=== PATIENT | female | born 1980 | race Caucasian/White ===

== ENCOUNTER → 2016-11-15 | Outpatient (CLI) | payer OTHER ==
[~2016-11-15] MED LIST: ACET-1256 PO; HYDR-5688 PO; IBUP-103 PO; PRENTAB26 PO
[2016-11-15 14:54] LABS: MEAN CELL VOLUME 87.4 fL (80-100); MEAN CORPUSCULAR HGB CONC 33.2 g/dl (32-36); MEAN PLATELET VOLUME 11.2 fL (7.4-10.4); PLATELET COUNT 169 K/uL (130-400); RED BLOOD COUNT 4.35 M/uL (4.2-5.4); WHITE BLOOD COUNT 2.75 K/uL (4.8-10.8)
[2016-11-15 15:21] LABS: ALT/SGPT 18 U/L (12-78); AST/SGOT 12 U/L (15-37); BLOOD UREA NITROGEN 12 mg/dl (7-18); BUN/CREATININE RATIO 13.8 (10-20); CARBON DIOXIDE 29 mmol/L (21-32); CHLORIDE 107 mmol/L (98-107); CREATININE 0.84 mg/dl (0.60-1.20); GLUCOSE 84 mg/dl (70-99); POTASSIUM 3.8 mmol/L (3.5-5.1); SODIUM 141 mmol/L (136-145)
[2016-11-15 15:24] LABS: ALB/GLOB RATIO 1.1 (0.9-2); ALKALINE PHOSPHATASE 45 U/L (45-117); CHOLESTEROL 145 mg/dl (0-200); CHOLESTEROL/HDL RATIO 2.2; HDL CHOLESTEROL 65 mg/dl; LDL CHOLESTEROL CALCULATED 74 mg/dl; TRIGLYCERIDES 32 mg/dl (0-150); VERY LOW DENSITY LIPOPROT CALC 6 mg/dl
== END | disposition home or self-care (01) ==
LOC: C.LABBC 10:18
PROVIDERS: ATTEND Internal Medicine
DX: Z00.00 Encounter for general adult medical examination without abnormal findings (principal)

== ENCOUNTER → 2016-12-06 | Outpatient (CLI) | payer OTHER | END | disposition home or self-care (01) | LOC: C.PAPS 13:54 | PROVIDERS: ATTEND Obstetrics & Gynecology | DX: Z01.419 Encounter for gynecological examination (general) (routine) without abnormal findings (principal) ==

== ENCOUNTER → 2016-12-25 | Outpatient (CLI) | payer OTHER | END | disposition home or self-care (01) | LOC: C.PATHSPEC 17:09 | PROVIDERS: ATTEND Obstetrics & Gynecology | DX: R87.610 Atypical squamous cells of undetermined significance on cytologic smear of cervix (ASC-US) (principal); R87.810 Cervical high risk human papillomavirus (HPV) DNA test positive; N87.9 Dysplasia of cervix uteri, unspecified; R87.612 Low grade squamous intraepithelial lesion on cytologic smear of cervix (LGSIL) ==

== ENCOUNTER → 2017-03-04 | Outpatient (CLI) | payer OTHER ==
[~2017-03-04] MED LIST changes: -IBUP-103 PO
--- NOTE | 2017-03-04 10:35 | DIAGNOSTIC IMAGING REPORT ---
ABDOMEN FOR HERNIA CLINICAL HISTORY: 36 years-old Female presenting with right lower quadrant abdominal tenderness. TECHNIQUE: Real-time grayscale and limited color Doppler ultrasound imaging of the right lower quadrant was performed. COMPARISON: None. FINDINGS: At the palpable right lower quadrant region of interest, a fat and bowel-containing hernia noted. The neck of the hernia at the peritoneal defect measures 1.5 cm in width. With compression, the hernia appears reducible. No hyperemia of the contents. No associated fluid to suggest secondary inflammatory change. IMPRESSION: Reducible right lower quadrant hernia containing fat and bowel. No secondary signs of inflammation. Electronically signed by: Jamie Song M.D. 03/04/2017 10:34 AM Dictated Date/Time: 03/04/2017 10:32 AM
== END | disposition home or self-care (01) ==
LOC: C.ULTRBC 10:00
PROVIDERS: ATTEND Nurse Practitioner Family
DX: R10.813 Right lower quadrant abdominal tenderness (principal)

== ENCOUNTER → 2017-03-28 | Day surgery (SDC) | payer OTHER ==
[2017-03-27 09:03] VITALS: Ht 172.7 cm; Wt 66.4 kg
[~2017-03-28] VITALS: Ht 172.7 cm; Wt 66.4 kg
[~2017-03-28] MED LIST changes: -ACET-1256 PO; +ATROPINE SULFATE 0.1 MG/ML 5ML SYR IV PRN; +BUPIVACAINE/EPINEPHRINE 0.5% MPF 1:200,000 10 ML VIAL ONE; +CLINDAMYCIN PHOS 150 MG/ML 2 ML VIAL IV SCH; +DEXAMETHASONE SOD INJ 4 MG/ML VIAL ONE; +EpHEDrine SULFATE INJ 50 MG/ML AMP IV PRN; +FENTANYL CITRATE INJ 50 MCG/1 ML 2 ML VIAL IV PRN; +FENTANYL CITRATE INJ 50 MCG/1 ML 2 ML VIAL ONE; +HYDROCODONE/ACETAMOPHEN 5/325MG TAB PO PRN; +KETOROLAC TROMETHAMINE 30 MG/ML VIAL ONE; +LACTATED RINGER'S 1000ML 1,000 ML IV SCH; +LIDOCAINE HCL 2% 2 ML VIAL (20MG/ML) ONE; +MIDAZOLAM HCL 1 MG/ML 2ML VIAL ONE; +ONDANSETRON INJ 2 MG/ML 2 ML VIAL IV PRN; +ONDANSETRON INJ 2 MG/ML 2 ML VIAL ONE; -PRENTAB26 PO; +PROPOFOL IV EMULSION 10 MG/ML 20 ML VIAL IV ONE; +SODIUM CHLORIDE 0.9% 1000ML 1,000 ML IV SCH
--- NOTE | 2017-03-28 06:56 | History & Physical Bridge Note ---
H&P Re-Evaluation Bridge Note: I have examined the patient, reviewed the History & Physical and in the interval since the performance of the History & Physical I have noted the following changes of clinical significance: No changes noted
--- NOTE | 2017-03-28 08:02 | [facility] Operative Report ---
Operative Report Operative Date Mar 28, 2017. Pre-Operative Diagnosis Right Inguinal Hernia Post-Operative Diagnosis Same Procedure(s) Performed Open Right Inguinal Hernia Repair With Mesh;ilioinguinal neurolysis Surgeon Dr. Leonardo Pond Worker Surgeon(s) Nicki Ozuna PA-C Estimated Blood Loss 5 ML Findings moderate sized indirect hernia Specimens None Anesthesia LMA Complication(s) None Disposition Recovery Room / PACU I attest to the content of the Intraoperative Record and any orders documented therein. Any exceptions are noted below.
--- NOTE | 2017-03-28 08:09 | Discharge Instructions-SurgCtr ---
Discharge Instructions Date of Service Mar 28, 2017. Visit Reason for Visit: Right Inguinal Hernia Discharge Discharge Diagnosis / Problem: Right Inguinal Hernia Discharge Goals Goal(s): Decrease discomfort, Improve function Activity Recommendations Activity Limitations: as noted below Lifting Limitations: no more than 10 pounds Exercise/Sports Limitations: until after follow-up appointment May Resume Sexual Activity: after follow-up appointment Shower/Bathe: tomorrow Anesthesia . Post Anesthesia Instructions: If you have had General Anesthesia or IV Sedation: * Do not drive today. * Resume driving when surgeon permits. * Do not make important decisions or sign legal documents today. * Call surgeon for: 1. Temperature elevations greater than 101 degrees F. 2. Uncontrollable pain. 3. Excessive bleeding. 4. Persistent nausea and vomiting. 5. Medication intolerance (nausea, vomiting or rash). * For nausea and vomiting use only clear liquids such as: tea, soda, bouillon until nausea subsides, then gradually increase diet as tolerated. * If you have any concerns or questions, call your surgeon's office. If physician is unavailable and it is an emergency, call 911 or go to the nearest emergency room. . Instructions / Follow-Up Instructions / Follow-Up Please follow-up with Dr. Leonadro in the office in 1-2 weeks. Please call the office at [phone] to make an appointment if you do not have one already. Please call the office with any questions or concerns. Diet Recommendations Home Diet: no limitations, resume previous diet Procedures Procedures Performed: Open Right Inguinal Hernia Repair With Mesh;ilioinguinal neurolysis Pending Studies Studies pending at discharge: no Medical Emergencies . Who to Call and When: Medical Emergencies: If at any time you feel your situation is an emergency, please call 911 immediately. . Non-Emergent Contact Non-Emergency issues call your: Primary Care Provider, Surgeon Call Non-Emergent contact if: temperature is above 101.5, your pain is not controlled, wound has increased drainage, wound has increased redness . . "Provider Documentation" section prepared by Licha Ozuna. . [place] Drug Monitoring Program Search Results: patient reviewed within database, no issues identified
[2017-03-28 09:15] VITALS: BP 119/75; PULSE 66; O2SAT 100
--- NOTE | 2017-03-28 09:21 | OPERATIVE REPORT ---
DATE OF OPERATION: 03/28/2017 PREOPERATIVE DIAGNOSIS: Right inguinal hernia. POSTOPERATIVE DIAGNOSIS: Same. PROCEDURE: Open right inguinal hernia repair with mesh and ilioinguinal neurolysis. SURGEON: Dr. Leonardo. VESSEL BUILDER: Licha Ozuna PA-C. ESTIMATED BLOOD LOSS: 5 mL. COMPLICATIONS: No immediate. ANESTHESIA: General with laryngeal mask airway. OPERATIVE NOTE: After informed consent was obtained, the patient was taken to the operating suite, placed in supine position. After successful placement of laryngeal mask airway the right lower quadrant was shaved and sterilely prepped and draped in usual fashion. An inguinal incision was made with 15 blade scalpel and carried down through the soft tissue using electrocautery. The external oblique aponeurosis was skeletonized. I then used a fresh blade to make a small incision in it and used Metzenbaum scissors to extend this distally down to the pubic bone as well as for several centimeters proximally. Once in the inguinal canal, we were able to readily see a bulge near the base of the round ligament. I was able to grasp the remnants of the round ligament and elevate them and put a [place] around them. The hernia sac was readily identifiable. We used traction, counter traction small amounts of electrocautery to dissect this back to its base. Once we had it completely freed up, we were able to easily dunk it back down into the abdominal cavity. I then closed the muscle using 0 Nurolon to keep the hernia sac in the abdomen while we placed the mesh. We then used a piece of polypropylene mesh. We secured it with 0 Ethibond to Den's ligament distally, laterally along the shelving portion of Poupart's ligament and medially along the midline musculature. The "arms" were wrapped around behind the round ligament remnants and secured to underlying muscle. The mesh laid nice and tension free. There was adequate hemostasis at the end of the procedure. We thoroughly irrigated the wound and placed Marcaine around the edges of the mesh for postoperative analgesia. We then closed the external oblique aponeurosis with 2-0 Vicryl in a running fashion. Soft tissue was irrigated and closed with 3-0 Vicryl and skin was closed with 4-0 Monocryl. Some additional Marcaine was injected around the incision for postoperative analgesia and skin glue used as a dressing. The patient was awakened, extubated, and transferred to recovery in stable condition. I attest to the content of the Intraoperative Record and any orders documented therein. Any exception s are noted below.
--- NOTE | 2017-03-28 09:37 | Anesthesiology Progress Note ---
Anesthesia Post Op Note Date & Time Mar 28, 2017 at 09:35 Vital Signs Pain Intensity: 0 Vital Signs Past 12 Hours Date Time Temp Pulse Resp B/P (MAP) Pulse Ox O2 Delivery O2 Flow Rate FiO2 03/28/17 09:15 66 16 119/75 (90) 100 Room Air 03/28/17 08:53 36.6 58 16 114/65 (81) 100 Room Air 03/28/17 08:42 36.4 56 18 118/78 100 Room Air 03/28/17 08:41 118/78 03/28/17 08:40 63 24 99 03/28/17 08:40 60 24 03/28/17 08:36 128/78 03/28/17 08:35 59 14 98 03/28/17 08:35 56 14 03/28/17 08:31 131/79 03/28/17 08:30 58 21 100 03/28/17 08:30 57 21 03/28/17 08:26 131/78 03/28/17 08:25 58 18 03/28/17 08:25 58 18 100 03/28/17 08:21 132/51 03/28/17 08:20 72 23 03/28/17 08:20 70 23 98 03/28/17 08:16 120/85 03/28/17 08:15 65 23 100 03/28/17 08:15 63 23 03/28/17 08:11 128/107 03/28/17 08:10 77 100 03/28/17 08:10 77 03/28/17 08:05 36.6 85 16 134/71 99 Mask 5 03/28/17 08:05 91 134/71 99 03/28/17 08:05 91 03/28/17 06:26 36.6 63 16 119/75 (90) 100 Room Air Notes Mental Status: alert / awake / arousable, participated in evaluation Pt Amnestic to Procedure: Yes Nausea / Vomiting: adequately controlled Pain: adequately controlled Airway Patency, RR, SpO2: stable & adequate BP & HR: stable & adequate Hydration State: stable & adequate Anesthetic Complications: no major complications apparent Significant weakness remains in the L quad muscle and sensory deficit in distribution of the Femoral N. The patient has no pain. Dr Leonardo used 0.5% marcane with epinephrine. I told the patient to expect ~12-16 hours of weakness. I would suspect that she will be ambulatory by tomorrow morning and fully recovered by 48 hours. I did notify Dr Leonardo of the femoral spread of his local anesthetic infiltration and he is comfortable with the patient being discharged to home.
== END | disposition home or self-care (01) ==
LOC: X.SURG 06:20
PROVIDERS: ATTEND Surgery
DX: K40.90 Unilateral inguinal hernia, without obstruction or gangrene, not specified as recurrent (principal)

== ENCOUNTER → 2017-08-14 | Outpatient (CLI) | payer OTHER ==
[~2017-08-14] MED LIST changes: -ATROPINE SULFATE 0.1 MG/ML 5ML SYR IV PRN; -BUPIVACAINE/EPINEPHRINE 0.5% MPF 1:200,000 10 ML VIAL ONE; -CLINDAMYCIN PHOS 150 MG/ML 2 ML VIAL IV SCH; -DEXAMETHASONE SOD INJ 4 MG/ML VIAL ONE; -EpHEDrine SULFATE INJ 50 MG/ML AMP IV PRN; -FENTANYL CITRATE INJ 50 MCG/1 ML 2 ML VIAL IV PRN; -FENTANYL CITRATE INJ 50 MCG/1 ML 2 ML VIAL ONE; -HYDR-5688 PO; -HYDROCODONE/ACETAMOPHEN 5/325MG TAB PO PRN; +IBUP-103 PO; -KETOROLAC TROMETHAMINE 30 MG/ML VIAL ONE; -LACTATED RINGER'S 1000ML 1,000 ML IV SCH; -LIDOCAINE HCL 2% 2 ML VIAL (20MG/ML) ONE; -MIDAZOLAM HCL 1 MG/ML 2ML VIAL ONE; -ONDANSETRON INJ 2 MG/ML 2 ML VIAL IV PRN; -ONDANSETRON INJ 2 MG/ML 2 ML VIAL ONE; -PROPOFOL IV EMULSION 10 MG/ML 20 ML VIAL IV ONE; -SODIUM CHLORIDE 0.9% 1000ML 1,000 ML IV SCH
[2017-08-14 16:38] LABS: BASO % 0.4 %; BASO ABS # 0.02 K/uL (0-0.2); COMPLETE YES; EOS % 4.7 %; HEMATOCRIT 37.7 % (37-47); IG% 0.2 %; LYMPH % 30.1 %; LYMPH ABS # 1.55 K/uL (1.2-3.4); MEAN CELL VOLUME 87.5 fL (80-100); MEAN CORPUSCULAR HGB CONC 33.2 g/dl (32-36); MEAN PLATELET VOLUME 11.2 fL (7.4-10.4); MONO % 7.4 %; NEUT % 57.2 %; PLATELET COUNT 157 K/uL (130-400); RED BLOOD COUNT 4.31 M/uL (4.2-5.4); WHITE BLOOD COUNT 5.15 K/uL (4.8-10.8)
== END | disposition home or self-care (01) ==
LOC: C.LAB1850 15:25
PROVIDERS: ATTEND Obstetrics & Gynecology
DX: Z01.812 Encounter for preprocedural laboratory examination (principal)

== ENCOUNTER → 2017-08-27 | Day surgery (SDC) | payer OTHER ==
[2017-07-21 14:58] VITALS: Ht 172.7 cm; Wt 67.3 kg
--- NOTE | 2017-08-14 18:24 | HISTORY & PHYSICAL EXAMINATION ---
DATE OF ADMISSION: 08/27/2017 PREOPERATIVE HISTORY AND PHYSICAL ADMITTING DIAGNOSES: Desired permanent surgical sterilization. ADMISSION HISTORY: The patient is a 37-year-old 3, para 2, AB 1, last menstrual period of 27 July who is admitted for laparoscopic tubal ligation. The patient adamantly desires no further childbearing capacity. The patient understands reversible forms of contraception available and wishes to proceed. PAST MEDICAL HISTORY: OBSTETRICAL: x2. GYNECOLOGICAL: Mild cervical dysplasia. MEDICAL: None. SURGICAL: Corneal surgery, inguinal hernia surgery, sinus surgery. ALLERGIES: AMOXICILLIN. SOCIAL HISTORY: No smoking. FAMILY HISTORY: Noncontributory. REVIEW OF SYSTEMS: As per HPI. ADMISSION PHYSICAL EXAMINATION: GENERAL: Shows a pleasant female in no acute distress. VITAL SIGNS: Blood pressure 122/80, height of 5 feet 7 inches, weight 152 pounds. HEENT EXAMINATION: Unremarkable. NECK: Supple. LUNGS: Clear. HEART: With a regular rhythm and rate. ABDOMEN: Soft, nontender. PELVIC: Shows normal external genitalia, vaginal wall pink and rugated. Cervical os multiparous and closed. Bimanual examination shows an anterior mobile uterus. Adnexa show no palpable masses. RECTAL: Confirmatory. EXTREMITIES: Shows no deep calf tenderness. NEUROLOGIC: Grossly intact. IMPRESSION: A 37-year-old 3, para 2, 1, requesting permanent surgical sterilization. PLAN: Risks, benefits and alternatives to the surgery have been discussed. While the benefits will be permanent surgical sterilization, the risks are bleeding, infection, inadvertent injury to bowel or bladder or failure of the procedure itself, failure rate quoted at 1-3%. The patient understands this. Permit has been signed and she wishes to proceed. OBED
[~2017-08-27] VITALS: Ht 172.7 cm; Wt 67.3 kg
[~2017-08-27] MED LIST changes: +ATROPINE SULFATE 0.1 MG/ML 5ML SYR IV PRN; +CHECK SCOPOLAMINE PATCH PLACEMENT SCH; +DEXAMETHASONE SOD INJ 4 MG/ML VIAL ONE; +EpHEDrine SULFATE INJ 50 MG/ML AMP IV PRN; +FENTANYL CITRATE INJ 50 MCG/1 ML 2 ML VIAL IV PRN; +FENTANYL CITRATE INJ 50 MCG/1 ML 2 ML VIAL ONE; +GLYCOPYRROLATE INJ 0.2 MG/ML VIAL ONE; +HYDR-5688 PO; +HYDROCODONE/ACETAMOPHEN 5/325MG TAB PO PRN; +IBUPROFEN 200 MG TAB ONE; +IBUPROFEN 600 MG TAB PO PRN; +KETOROLAC TROMETHAMINE 30 MG/ML VIAL IV. PRN; +KETOROLAC TROMETHAMINE 30 MG/ML VIAL ONE; +LACTATED RINGER'S 1000ML 1,000 ML IV SCH; +LIDOCAINE HCL 2% 2 ML VIAL (20MG/ML) ONE; +MIDAZOLAM HCL 1 MG/ML 2ML VIAL ONE; +NEOSTIGMINE METHYLSULFATE 5 MG/5 ML SYR ONE; +ONDANSETRON INJ 2 MG/ML 2 ML VIAL IV PRN; +ONDANSETRON INJ 2 MG/ML 2 ML VIAL ONE; +PROMETHAZINE HCL INJ 12.5 MG in SODIUM CHLORIDE 0.9% 50ML 50 ML IV PRN; +PROPOFOL IV EMULSION 10 MG/ML 20 ML VIAL IV ONE; +ROCURONIUM BROMIDE 10 MG/ML 5 ML VIAL IV ONE; +SCOPOLAMINE 1.5 MG TDSY TD SCH; +SODIUM CHLORIDE 0.9% 1000ML 1,000 ML IV SCH
--- NOTE | 2017-08-27 12:38 | [facility] Post Operative Brief Note ---
Immediate Operative Summary Operative Date Aug 27, 2017. Pre-Operative Diagnosis Encounter for Sterilization Post-Operative Diagnosis same Procedure(s) Performed Laparoscopic Tubal Sterilization Surgeon Dr De La Garza Lehr Tender Surgeon(s) none Estimated Blood Loss minimal Findings Normal appearing uterus, tubes and ovaries bilaterally. Bilateral fulguration of fallopian tubes Fluids (cc crystalloids) 800 Specimens none Drains None Anesthesia General Complication(s) None Disposition Recovery Room / PACU
--- NOTE | 2017-08-27 12:40 | Discharge Instructions-SurgCtr ---
Discharge Instructions Date of Service Aug 27, 2017. Visit Reason for Visit: Encounter For Sterilization Discharge Discharge Diagnosis / Problem: same Discharge Goals Goal(s): Therapeutic intervention Activity Recommendations Activity Limitations: as noted below Anesthesia . Post Anesthesia Instructions: If you have had General Anesthesia or IV Sedation: * Do not drive today. * Resume driving when surgeon permits. * Do not make important decisions or sign legal documents today. * Call surgeon for: 1. Temperature elevations greater than 101 degrees F. 2. Uncontrollable pain. 3. Excessive bleeding. 4. Persistent nausea and vomiting. 5. Medication intolerance (nausea, vomiting or rash). * For nausea and vomiting use only clear liquids such as: tea, soda, bouillon until nausea subsides, then gradually increase diet as tolerated. * If you have any concerns or questions, call your surgeon's office. If physician is unavailable and it is an emergency, call 911 or go to the nearest emergency room. . Instructions / Follow-Up Instructions / Follow-Up ACTIVITY RECOMMENDATIONS: * Rest the first 2-3 days. You should be back to your normal activity levels by day 3. * No heavy lifting for 2 weeks. * No intercourse, tampons or douching for 1-2 weeks. * You may shower the next day. * Do not drive anytime that you are taking narcotic pain medicines. RETURN TO SCHOOL/WORK: * May return to school or work after 2-3 days. DIET: Nausea may occur in the immediate post-operative period. If so, take clear liquids such as tea, bouillon, apple juice until all nausea has subsided, then resume usual diet. MEDICATIONS: Resume previous medications unless instructed otherwise by your surgeon. Ibuprofen 200mg 2-3 tablets every 4-6 hours as needed -- OR -- Aleve 2 tablets every 8-12 hours as needed for post-operative discomfort Medications are over the counter. Tylenol may be used if above medications are contraindicated or not preferred. Medication should be taken with food or milk. Do not take on an empty stomach. SPECIAL CARE INSTRUCTIONS: * Check temperature twice daily for one week. report any elevation over 101 degrees. * You may experience some vagina spotting and/or bleeding. This is normal for 1 -2 weeks and should not be heavier than a normal period. If it is unusual in amount, call your physician. * Post-operative discomfort may consist of a sore throat, a "bloated" feeling and pain in the shoulders. these are normal symptoms, which usually only last for 2-3 days. * Remove band-aids tomorrow and shower. There is no need to replace band-aids unless there is drainage or discomfort. FOLLOW UP VISIT: Call your doctor's office for a post-operative 2 week visit if not already scheduled. Diet Recommendations Home Diet: resume previous diet Procedures Procedures Performed: Laparoscopic Tubal Sterilization Pending Studies Studies pending at discharge: no Medical Emergencies . Who to Call and When: Medical Emergencies: If at any time you feel your situation is an emergency, please call 911 immediately. . Non-Emergent Contact Non-Emergency issues call your: [employer] Call Non-Emergent contact if: you have a fever, temperature is above 100.5, your pain is not controlled, your pain is worsening, wound has increased drainage, wound has increased redness . . "Provider Documentation" section prepared by Zuhair De La Garza. . [place] Drug Monitoring Program Search Results: patient reviewed within database, no issues identified
--- NOTE | 2017-08-27 12:49 | OPERATIVE REPORT ---
DATE OF OPERATION: 08/27/2017 PREOPERATIVE DIAGNOSIS: Desired permanent surgical sterilization. POSTOPERATIVE DIAGNOSIS: Same. PROCEDURE PERFORMED: Laparoscopic tubal ligation. SURGEON: Dr. De La Garza. ANESTHESIA: General. FINDINGS: Laparoscopic examination of the pelvis showed normal appearing uterus, tubes, and ovaries bilaterally. Bilateral fulguration of the fallopian tube in the proximal third in 3 contiguous lomeli until resistance met 0. PROCEDURE IN DETAIL: The patient was taken to the operating room and after general anesthesia, she was placed in dorsal lithotomy position and draped in the usual fashion. Bladder was drained of any residual urine. Single tooth tenaculum was used to grasp the anterior lip of the cervix. Register cannula was inserted into the cervical os and fastened to the tenaculum. Small subumbilical incision was made and the Veress needle was introduced into the pelvic cavity, which was then insufflated with 3 liters of CO2. Veress needle was removed and the sharp trocar was used to introduce the laparoscope. Pelvic organs were visualized and then under direct laparoscopic guidance, a 5-mm suprapubic trocar was placed. Through the suprapubic trocar, a stirring probe was inserted and pelvic organs were visualized with description as above. Stirring probe was removed and the bipolar cautery instrument was inserted through the suprapubic trocar. The fallopian tubes were then cauterized bilaterally in 3 contiguous lomeli until resistance met 0. Hemostasis was present. The CO2 was allowed to escape from the pelvic cavity. The trocars were removed under direct laparoscopic guidance. The skin incisions were closed with 4-0 Vicryl subcuticular sutures. Sterile dressings applied. Register cannula and tenaculum removed from the cervix. The patient taken out of dorsal lithotomy to the recovery room in satisfactory condition. I attest to the content of the Intraoperative Record and any orders documented therein. Any exception s are noted below.
[2017-08-27 13:37] VITALS: TEMP 37.2
[2017-08-27 14:01] VITALS: BP 117/63; PULSE 60; O2SAT 100
--- NOTE | 2017-08-27 14:25 | Anesthesiology Progress Note ---
Anesthesia Post Op Note Date & Time Aug 27, 2017 at 14:24 Vital Signs Pain Intensity: 2.0 Vital Signs Past 12 Hours Date Time Temp Pulse Resp B/P (MAP) Pulse Ox O2 Delivery O2 Flow Rate FiO2 08/27/17 14:01 60 16 117/63 (81) 100 Room Air 08/27/17 13:37 37.2 69 16 128/63 (84) 100 Room Air 08/27/17 13:30 118/72 08/27/17 13:26 52 24 08/27/17 13:26 56 24 99 08/27/17 13:25 65 17 08/27/17 13:25 61 17 117/77 99 08/27/17 13:20 55 16 08/27/17 13:20 55 16 119/72 98 08/27/17 13:18 37.0 99 Room Air 08/27/17 13:15 54 17 123/72 99 08/27/17 13:15 55 17 08/27/17 13:14 53 22 100 08/27/17 13:14 54 22 08/27/17 13:10 115/74 08/27/17 13:09 51 17 08/27/17 13:09 52 17 100 08/27/17 13:08 54 17 08/27/17 13:08 54 17 100 08/27/17 13:05 125/76 08/27/17 13:03 59 15 100 08/27/17 13:03 57 15 08/27/17 13:00 118/76 08/27/17 12:58 64 17 08/27/17 12:58 62 17 100 08/27/17 12:55 119/69 08/27/17 12:53 60 21 100 08/27/17 12:53 61 21 08/27/17 12:50 126/78 08/27/17 12:48 37.1 82 18 122/78 100 Mask 9 08/27/17 12:48 75 17 122/78 100 08/27/17 12:48 75 17 08/27/17 11:28 36.7 75 16 118/85 (96) 99 Room Air Notes Mental Status: alert / awake / arousable, participated in evaluation Pt Amnestic to Procedure: Yes Nausea / Vomiting: adequately controlled Pain: adequately controlled Airway Patency, RR, SpO2: stable & adequate BP & HR: stable & adequate Hydration State: stable & adequate Anesthetic Complications: no major complications apparent
== END | disposition home or self-care (01) ==
LOC: X.SURG 10:52
PROVIDERS: ATTEND Obstetrics & Gynecology
DX: Z30.2 Encounter for sterilization (principal); N87.0 Mild cervical dysplasia

== ENCOUNTER → 2017-12-17 | Outpatient (CLI) | payer OTHER ==
[~2017-12-17] MED LIST changes: -ATROPINE SULFATE 0.1 MG/ML 5ML SYR IV PRN; -CHECK SCOPOLAMINE PATCH PLACEMENT SCH; -DEXAMETHASONE SOD INJ 4 MG/ML VIAL ONE; -EpHEDrine SULFATE INJ 50 MG/ML AMP IV PRN; -FENTANYL CITRATE INJ 50 MCG/1 ML 2 ML VIAL IV PRN; -FENTANYL CITRATE INJ 50 MCG/1 ML 2 ML VIAL ONE; -GLYCOPYRROLATE INJ 0.2 MG/ML VIAL ONE; -HYDROCODONE/ACETAMOPHEN 5/325MG TAB PO PRN; -IBUPROFEN 200 MG TAB ONE; -IBUPROFEN 600 MG TAB PO PRN; -KETOROLAC TROMETHAMINE 30 MG/ML VIAL IV. PRN; -KETOROLAC TROMETHAMINE 30 MG/ML VIAL ONE; -LACTATED RINGER'S 1000ML 1,000 ML IV SCH; -LIDOCAINE HCL 2% 2 ML VIAL (20MG/ML) ONE; -MIDAZOLAM HCL 1 MG/ML 2ML VIAL ONE; -NEOSTIGMINE METHYLSULFATE 5 MG/5 ML SYR ONE; -ONDANSETRON INJ 2 MG/ML 2 ML VIAL IV PRN; -ONDANSETRON INJ 2 MG/ML 2 ML VIAL ONE; -PROMETHAZINE HCL INJ 12.5 MG in SODIUM CHLORIDE 0.9% 50ML 50 ML IV PRN; -PROPOFOL IV EMULSION 10 MG/ML 20 ML VIAL IV ONE; -ROCURONIUM BROMIDE 10 MG/ML 5 ML VIAL IV ONE; -SCOPOLAMINE 1.5 MG TDSY TD SCH; -SODIUM CHLORIDE 0.9% 1000ML 1,000 ML IV SCH
== END | disposition home or self-care (01) ==
LOC: C.PAPS 11:28
PROVIDERS: ATTEND Obstetrics & Gynecology
DX: Z12.4 Encounter for screening for malignant neoplasm of cervix (principal); N87.0 Mild cervical dysplasia